=== PATIENT | female | born 1935 | race Caucasian/White ===

== ENCOUNTER 2018-12-25 20:21 | Emergency (ER) | payer OTHER ==
[~2018-12-25] VITALS: Ht 157.5 cm; Wt 59.0 kg
[2018-12-25 20:26] VITALS: BP 144/63
--- NOTE | 2018-12-25 20:32 | NUR ---
EKG DONE IN TRIAGE. AMBULATED TO LOBBY WITH VSS. PROVIDED URINE.
[2018-12-25 20:58] LABS: BASOPHILS % (AUTO) 0.5 % (0.0-2.0); EOSINOPHILS # (AUTO) 0.1 K/uL (0-0.4); EOSINOPHILS % (AUTO) 1.6 % (0.0-4.0); HEMOGLOBIN 13.1 g/dL (12.0-16.0); LYMPHOCYTES # (AUTO) 1.6 K/uL (2.5-16.5); LYMPHOCYTES % (AUTO) 21.6 % (20.5-51.1); MEAN CORPUSCULAR HEMOGLOBIN 29 pg (27-31); MEAN CORPUSCULAR HGB CONC 33 g/dL (33-37); MEAN CORPUSCULAR VOLUME 89.9 fL (80-94); MONOCYTES # (AUTO) 0.5 K/uL (0.8-1.0); NEUTROPHILS # (AUTO) 5.2 K/uL (1.8-7.7); NEUTROPHILS % (AUTO) 69.3 % (42.2-75.2); PLATELET COUNT (AUTO) 226 K/uL (140-450); RED BLOOD CELL COUNT(AUTO) 4.45 MIL/uL (4.20-5.40); RED CELL DISTRIBUTION WIDTH 14.7 % (11.6-13.7); WHITE BLOOD COUNT (AUTO) 7.5 K/uL (4.8-10.8)
[2018-12-25 21:52] LABS: ANION GAP 16.5 (8-16); CARBON DIOXIDE 26.1 mmol/L (21-32); CHLORIDE 101 mmol/L (98-107); CREATININE 1.1 mg/dL (0.6-1.3); GLUCOSE 160 mg/dL (74-106); POTASSIUM 3.6 mmol/L (3.5-5.1); SODIUM SERUM 140 mmol/L (136-145); UREA NITROGEN, BLOOD 26 mg/dL (7-18)
[2018-12-25 21:57] LABS: ALBUMIN 3.9 g/dL (3.4-5.0); ASPARTATE AMINOTRANSFERASE 15 U/L (15-37); TOTAL BILIRUBIN 0.3 mg/dL (0.0-1.0)
--- NOTE | 2018-12-25 22:22 | NUR ---
PT TAKEN TO BED 3
--- NOTE | 2018-12-25 22:55 | NUR ---
PT BIB FAMILY TO ED FOR EVALUATION OF CHEST PAIN X 2 DAYS. NO RADIATION. AAO X4, GSC 15, VANESSA TO SPEAK WITH FULL COMPLETE SENTENCES. PUPILS PERRL. RESPIATIONS EVEN AND UNLABORED, BL LUNG CLEAR. SKIN WAMR/PINK/DRY, +PMSC. ABDOMEN SOLF, NON DISTENDED, ACTIVE BOWEL SOUND X4. PLACED PT ON [employer] SR, VSS, STATED CP 6/10, NO RFADIATION, ACHING LIKE PAIN. MADE AWARE OF PT STATUS. WILL CONTINEU TO MONITOR
--- NOTE | 2018-12-26 02:28 | NUR ---
Dr. Bianchi evaluating patient at bedside.
[2018-12-26] MEDS ORDERED: KETOROLAC 60 MG/2 ML VIAL IM ONE (02:30)
[2018-12-26 02:55] VITALS: BP 128/81
== END 2018-12-26 02:55 | disposition home or self-care (01) ==
LOC: MED 20:21
DX: R07.89 Other chest pain (principal); I10 Essential (primary) hypertension; Z86.73 Personal history of transient ischemic attack (TIA), and cerebral infarction without residual deficits; Z85.038 Personal history of other malignant neoplasm of large intestine
CPT/HCPCS: 36415; 71045; 80053; 83880; 84484; 85025; 93005; 96372; 99284; J1885